=== PATIENT | male | born 1945 | race American Indian/Alaskan Native ===

== ENCOUNTER 2017-09-27 09:42 | Outpatient (CLI) | payer MEDICARE, OTHER ==
[2017-09-27] MEDS ORDERED: Gadobenate Dimeglumine 529 MG/1 ML (20ML VIAL) ONE (12:08)
--- NOTE | 2017-09-27 14:29 | MRI ---
MRI ABDOMEN WITH AND WITHOUT CONTRAST: HISTORY: Hepatic mass. COMPARISON: CT abdomen and pelvis 06/10/16 and 05/22/15 as well as outside facility 08/01/17 and 03/08/16. TECHNIQUE: Multiplanar, multisequence MRI performed prior to and after the intravenous administration of contras t. FINDINGS: Corresponding to the recently discussed mass in the right lobe of the liver hepatic segment 5, there is approximately a 2 x 2.1 cm mass with no arterial phase hyperenhancement, washout, enhancing capsul e, or threshold growth. This is similar in size dating back from 2014. There is, however, microscop ic fat within this. The hepatic contour is nodular suggesting cirrhosis. No suspicious arterial hyp erenhancing mass. There is a cyst in hepatic segment 8. Simple cyst present in superior pole right kidney. No hydronephrosis. No abnormal enhancing mass wi thin the pancreas, the spleen, or adrenal glands. No dilated loops involving the upper abdomen. IMPRESSION: 1. LIRADS 3: indeterminate for malignancy. The mass in the hepatic segment 5 is unchanged in size d ating back to 2014. This has no major features of malignancy and has ancillary features favoring bot h benignancy and malignancy. A followup MRI liver protocol in 6 months-1 year is recommended. 2. 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 There is also edema withi n the posterior elements and facets of L5 indicating degenerative disease. POS: [facility]
== END 2017-09-27 09:43 | disposition home or self-care (01) ==
LOC: MRI 09:42
PROVIDERS: ATTEND Internal Medicine Gastroenterology
DX: R16.0 Hepatomegaly, not elsewhere classified (principal); R60.0 Localized edema; M47.817 Spondylosis without myelopathy or radiculopathy, lumbosacral region
CPT/HCPCS: 74183; A9579

== ENCOUNTER 2018-03-21 13:35 | Outpatient (CLI) | payer MEDICARE, OTHER ==
--- NOTE | 2018-03-21 15:32 | MRI ---
MRI CERVICAL SPINE NONCONTRAST: HISTORY: Neck pain with right arm radiculopathy. FINDINGS: Vertebral body heights are maintained. There is desiccation of all of the intervertebral disks. C2-3: Osteophytosis. Mild to moderate stenosis left neural foramen. C3-4: Osteophytosis. Central canal is patent. Severe bilateral foraminal stenosis. C4-5: Bulky osteophytosis, right greater than left, with fusion of the right posterior elements. Ve ry severe right and moderate left foraminal stenosis. C5-6: Disk space narrowing. Minimal degenerative retrolisthesis. Posterior osteophyte/disk complex . Circumferential degenerative changes with severe stenosis of the central canal and each neural for amen. C6-7: Minimal degenerative spondylolisthesis. Posterior osteophyte/disk complex. Moderate stenosis of the central canal. Severe bilateral foraminal stenoses. C7-T1: Mild osteophytosis. Central canal and neural foramen are patent. IMPRESSION: Severe multilevel degenerative changes as detailed above. Central canal and foraminal stenoses are m ost severe at the C4-5 and the C5-6 levels. POS: [facility]
== END 2018-03-21 13:36 | disposition home or self-care (01) ==
LOC: SCSMRI 13:35
PROVIDERS: ATTEND Orthopaedic Surgery
DX: M47.22 Other spondylosis with radiculopathy, cervical region (principal); M48.02 Spinal stenosis, cervical region; M99.81 Other biomechanical lesions of cervical region
CPT/HCPCS: 72141

== ENCOUNTER 2018-09-20 14:10 | Outpatient (CLI) | payer MEDICARE, OTHER ==
--- NOTE | 2018-09-20 15:20 | MRI ---
MRI LUMBAR SPINE WITHOUT CONTRAST: Date: 09/20/18 COMPARISON: None. HISTORY: Right lower extremity radiculopathy, back pain. TECHNIQUE: Multiplanar, multisequence MR imaging of the lumbar spine obtained without contrast. FINDINGS: Sagittal STIR imaging demonstrates edematous change within the pedicles on the left at L4 and L5, whi ch could be on the basis of degenerative change or stress reaction. There is small volume fluid signa l intensity within the facet joints bilaterally at L4-5, right greater than left. This can be seen on the basis of instability. Flexion and extension imaging would thus be beneficial. Mild anterolisthesis of L4 on L5 noted measuring 4.0 mm. On the basis of five lumbar-type vertebral bodies, the conus medullaris terminates at the T12-L1 leve l. T12-L1: Disc space narrowing and disc desiccation noted with mild disc bulge. Anterior osteophyte fo rmation present. No significant central canal or neural foraminal stenosis. L1-2: Disc space narrowing, disc desiccation, and anterior osteophyte formation with mild disc bulge causing no central canal stenosis. Mild bilateral facet hypertrophy with no significant neural viry inal stenosis. L2-3: Disc space narrowing and disc desiccation noted with small central disc protrusion and associa kuldip annular tear. No significant associated central canal stenosis. Bilateral facet hypertrophy with mild bilateral neural foraminal stenosis, right greater than left. L3-4: Bilateral facet hypertrophy and hypertrophy of the ligamentum flavum. There is disc desiccatio n with disc space narrowing and mild disc bulge. Mild central canal stenosis. Mild/moderate bilateral neural foraminal stenosis. L4-5: Disc space narrowing, disc desiccation, and disc bulge. Prominent bilateral facet hypertrophy and hypertrophy of ligamentum flavum. Moderate central canal stenosis. Moderate/severe bilateral neur al foraminal stenosis, right greater than left. L5-S1: Disc space narrowing, disc desiccation, and vacuum disc formation. Prominent bilateral facet hypertrophy. Severe bilateral neural foraminal stenosis, left greater than right. Mild central canal stenosis. Mild anterolisthesis measures 5.0 mm at the L5-S1 level. T2 hyperintense partially imaged lesion emanates from upper pole of right kidney, likely on the basis of incompletely imaged cyst. IMPRESSION: Prominent degenerative change within the lower lumbar spine with associated central canal and neural foraminal stenosis at L4-5 and L5-S1 as detailed above. Flexion and extension imaging is suggested to evaluate for possible instability at L4-5. Edematous change noted within the pedicles on the left at L4 and L5 as detailed above. POS: [facility]
== END 2018-09-20 14:11 | disposition home or self-care (01) ==
LOC: BICMRI 14:10
PROVIDERS: ATTEND Orthopaedic Surgery
DX: M47.26 Other spondylosis with radiculopathy, lumbar region (principal); M79.604 Pain in right leg; M48.061 Spinal stenosis, lumbar region without neurogenic claudication; M48.07 Spinal stenosis, lumbosacral region
CPT/HCPCS: 72148

== ENCOUNTER 2018-12-10 13:19 | Outpatient (CLI) | payer MEDICARE, OTHER ==
--- NOTE | 2018-12-10 14:27 | RAD ---
CERVICAL SPINE FOUR VIEWS: HISTORY: Lumbar radiculopathy and cervical radiculopathy. COMPARISON: None. FINDINGS: The open-mouth odontoid view is normal. The mandible is intact. Dense calcifications are projecting over the carotid bulbs bilaterally. There is a 2 mm C3-C4 anterolisthesis, due to degenerative facet arthropathy. There is moderate narr owing of C3-C4 and C4-C5 and severe narrowing of the C5-C6 disk spaces with uncinate process hypertro phy at these levels, as well as bridging disk osteophyte complexes anteriorly. No significant listhe sis with flexion or extension. IMPRESSION: 1. There is 2 mm of C3-C4 anterolisthesis without significant translation with flexion or extension. 2. Degenerative changes as described. POS: [facility]
--- NOTE | 2018-12-10 14:29 | RAD ---
LUMBAR SPINE RADIOGRAPHS 4 VIEWS: DATE: 12/10/2018. PROVIDED CLINICAL HISTORY: Lumbar radiculopathy. FINDINGS: Five pil-zui-jeewfdi lumbar-type vertebral bodies are present. There is grade I anterolisthesis of L 4 on L5. There is slight retrolisthesis of L2 on L3. Multilevel end plate degenerative change. Dis k space narrowing at L1-2. Lower lumbar spine facet arthritis. No evidence for abnormal translation al motion with flexion and extension. IMPRESSION: Lumbar spine degenerative change as above. POS: [facility]
== END 2018-12-10 13:20 | disposition home or self-care (01) ==
LOC: TBSIIMAG 13:19
PROVIDERS: ATTEND Surgery
DX: M47.26 Other spondylosis with radiculopathy, lumbar region (principal); M43.12 Spondylolisthesis, cervical region; M47.812 Spondylosis without myelopathy or radiculopathy, cervical region
CPT/HCPCS: 72050; 72110

== ENCOUNTER 2019-01-31 09:41 | Day surgery (SDC) | payer MEDICARE, OTHER ==
[2019-01-30 15:16] VITALS: BMI 30.1
[2019-01-31 10:20] LABS: #Eosinphils 0.1 thou/uL (0.0-0.7); #Monocytes 0.5 thou/uL (0.11-0.59); #Neutrophils 2.6 thou/uL (1.40-6.50); %Basophils 0.6 % (0.0-1.0); %Eosinophils 1.9 % (0.0-10.0); %Lymphocytes 23.4 % (21.0-51.0); %Monocytes 11.1 % (0.0-10.0); Hemoglobin 13.3 g/dL (14.0-18.0); Mean Corpuscular HGB CONC 33.2 g/dL (32.0-36.0); Mean Corpuscular Volume 99.4 fL (78.0-98.0); Mean Platelet Volume 8.3 fL (7.4-10.4); Platelet Count 102 thou/uL (130-400); RBC Distribution Width 11.7 % (11.5-14.5); Red Blood Cell (RBC) Count 4.01 mill/uL (4.70-6.10); White Blood Cell (WBC) Count 4.2 thou/uL (4.8-10.8)
[2019-01-31] MEDS ORDERED: metroNIDAZOLE 500 MG/100 ML BAG ONE (10:23)
[2019-01-31] MEDS ORDERED: Fentanyl 250 MCG/5 ML VIAL ONE (10:24)
[2019-01-31 10:25] LABS: INR-International Normal Ratio 1.2; Prothrombin Time 15.3 SEC (12.0-14.7)
[2019-01-31] MEDS ORDERED: Bacitracin Zinc Ointment 30 gm TUBE ONE ×2 (10:25→10:27)
[2019-01-31] MEDS ORDERED: Thrombin 5000 UNITS/5 ML VIAL ONE (10:25)
[2019-01-31] MEDS ORDERED: Sodium Chloride 0.9% 10 ML ONE (10:30)
[2019-01-31 10:38] LABS: Anion Gap 13 mmol/L (10-20); BUN (Urea Nitrogen) 9 mg/dL (8.4-25.7); Calc. Creatinine Clearance 101 mL/min (70-130); Carbon Dioxide 27 mmol/L (23-31); Chloride 100 mmol/L (98-107); Estimated GFR-MDRD 89; Glucose 89 mg/dL (83-110); Potassium 4.5 mmol/L (3.5-5.1); Sodium 135 mmol/L (136-145)
[2019-01-31] MEDS ORDERED: Promethazine HCl 25 MG/ML VIAL IVPB PRN (14:32)
[2019-01-31] MEDS ORDERED: HYDROcodone/Acetaminophen 7.5/325 mg Tablet PO PRN (14:32)
[2019-01-31] MEDS ORDERED: Mag-Al 1200 mg/1200 mg/30 ML UDCUP PO PRN (14:32)
[2019-01-31] MEDS ORDERED: Acetaminophen 325 MG TAB PO PRN (14:32)
[2019-01-31] MEDS ORDERED: Bisacodyl 10 MG SUPP PR PRN (14:32)
[2019-01-31] MEDS ORDERED: traMADol HCl 50 MG TAB PO PRN (14:32)
[2019-01-31] MEDS ORDERED: Milk Of Magnesia 30 ML UDCUP PO PRN (14:32)
[2019-01-31] MEDS ORDERED: Ondansetron HCl/PF 4 MG/2 ML Vial IVP PRN (14:34)
[2019-01-31] MEDS ORDERED: Ketorolac Tromethamine 30 MG/ML VIAL IVP PRN (14:34)
[2019-01-31] MEDS ORDERED: Morphine Sulfate 2 MG/ML SYRINGE SLOW IVP PRN (14:34)
[2019-01-31] MEDS ORDERED: Promethazine HCl 25 MG/ML VIAL SLOW IVP PRN (14:34)
[2019-01-31] MEDS ORDERED: Meperidine HCl/PF 25 MG/ML VIAL SLOW IVP PRN (14:34)
[2019-01-31] MEDS ORDERED: HYDROmorphone 2 MG/ML VIAL SLOW IVP PRN (14:34)
[2019-01-31] MEDS ORDERED: Promethazine HCl 25 MG/ML VIAL IM PRN (14:34)
[2019-01-31] MEDS ORDERED: Fentanyl 100 MCG/2 ML VIAL ONE ×2 (14:37→15:56)
[2019-01-31] MEDS ORDERED: Fleet Enema 133 ML BOT PR PRN (16:00)
[2019-01-31] MEDS ORDERED: Lidocaine 1% PF 5 ML VIAL ONE (16:11)
[2019-01-31] MEDS ORDERED: PROPOFOL 200 MG/20 ML VIAL ONE (16:11)
[2019-01-31] MEDS ORDERED: Dexamethasone 20 MG/5 ML VIAL ONE (16:11)
[2019-01-31] MEDS ORDERED: ePHEDrine 50 MG/ML VIAL ONE (16:11)
[2019-01-31] MEDS ORDERED: PHENYLEPHRINE-NS 100 MCG/ML 10 ML SYRINGE ONE (16:11)
[2019-01-31] MEDS ORDERED: Rocuronium Bromide 10 MG/ML (10ML VIAL) ONE (16:11)
[2019-01-31] MEDS ORDERED: Glycopyrrolate 0.2 MG/ML 5 ML SYRINGE ONE ×2 (16:11)
[2019-01-31] MEDS ORDERED: Ondansetron PF 4 MG/2 ML Vial ONE (16:11)
[2019-01-31] MEDS: Sodium Chloride 0.9% 1,000 ML IV SCH (17:28)
[2019-01-31] MEDS: tiZANidine HCl 4 MG TAB PO PRN (17:43)
[2019-01-31] MEDS: Acetaminophen/Codeine 30-300mg Tablet PO PRN ×3 (17:43→23:35)
[2019-01-31] MEDS: CEFAZOLIN 2 GM in Premix Bag 1 BAG IVPB SCH (17:44)
[2019-01-31] MEDS: Morphine 4 MG/ML VIAL SLOW IVP PRN ×2 (20:02→21:49)
[2019-02-01] MEDS: CEFAZOLIN 2 GM in Premix Bag 1 BAG IVPB SCH (02:42)
[2019-02-01] MEDS: tiZANidine HCl 4 MG TAB PO PRN (04:06)
[2019-02-01] MEDS: Acetaminophen/Codeine 30-300mg Tablet PO PRN ×2 (04:06→14:44)
[2019-02-01] MEDS: Sodium Chloride 0.9% 1,000 ML IV SCH (04:08)
--- NOTE | 2019-02-01 07:21 | EKG ---
Test Reason : PREOP Blood Pressure : / mmHG Vent. Rate : 045 BPM Atrial Rate : 045 BPM P-R Int : 188 ms QRS Dur : 088 ms QT Int : 472 ms P-R-T Axes : 043 -01 004 degrees QTc Int : 408 ms Marked sinus bradycardia Abnormal ECG No previous ECGs available Confirmed by JANIS MARIE ([id number]) on 02/01/2019 7:21:05 AM Referred By: NELLI Confirmed By:JANIS MARIE
[2019-02-01] MEDS ORDERED: Alfuzosin 10 MG TABDR...ER PO SCH (08:00)
--- NOTE | 2019-02-01 08:17 | OP ---
DATE OF PROCEDURE: 01/31/2019 OPERATING ROOM: OR 12. BILINGUAL HR GENERALIST: Skyler Villa PA-C PREPROCEDURE DIAGNOSES: Multilevel lumbar stenosis with low back and leg pain and lumbar spondylolisthesis. POSTPROCEDURE DIAGNOSES: Multilevel lumbar stenosis with low back and leg pain and lumbar spondylolisthesis. PROCEDURES PERFORMED: 1. L2-L3, L3-L4, L4-L5, and L5-S1 laminectomies, partial facetectomies, and foraminotomies. 2. L5-S1 posterolateral in situ fusion with local bone autograft obtained with same incision allograft to treat spondylolisthesis. DESCRIPTION OF PROCEDURE: After informed consent was obtained, the patient was brought to the OR. Proper patient, pause, and identification were carried out. He was placed under excellent endotracheal anesthesia and positioned prone on the OR table. All appropriate points were padded. We identified the L2 through S1 dorsal spines. Linear felisha was made over this region. This area was sterilely cleansed, prepared, and draped. Proper patient, pause, and identification were carried out. The wound was then opened with a combination of sharp, monopolar, and blunt dissection. The L2, L3, L4, L5, and S1 dorsal spines and lamina were exposed along with the L5-S1 facet complexes, which were decorticated for preparation of posterolateral fusion in the latter part of the case. We then turned our attention to localization. We had confirmed our area of interest and we performed an L2, L3, L4, L5, and S1 laminectomies, partial facetectomies, and foraminotomies. They had excellent decompression of common dural tube in the L2, L3, L4, L5, and S1 nerve roots. Copious irrigation occurred throughout as I did maximizing hemostasis. I then turned our attention to posterolateral arthrodesis at L5-S1 with local bone autograft obtained with same incision in allograft bilaterally. The wound was then again copiously irrigated and hemostasis maximized. The wound was closed in anatomic layers following sprinkling of vancomycin powder. The patient emerged from anesthesia. Job ID: [id number]
[2019-02-01] MEDS ORDERED: Fluticasone Propionate Nasal Spray 16 gm Bottle NASAL SCH (09:00)
[2019-02-01] MEDS ORDERED: Oxybutynin ER 5 MG TAB PO SCH (09:00)
[2019-02-01] MEDS ORDERED: pyridOXINE 50 MG (B6) TAB PO SCH (09:00)
[2019-02-01] MEDS ORDERED: Propranolol HCl LA 60 MG CAP PO SCH (09:00)
[2019-02-01] MEDS ORDERED: LEVOTHYROXINE SODIUM 100 MCG PO SCH (09:00)
[2019-02-01] MEDS ORDERED: POTASSIUM GLUCONATE 90 MG PO SCH (09:00)
[2019-02-01] MEDS ORDERED: Amlodipine 5 MG TAB PO SCH (09:00)
[2019-02-01 12:40] VITALS: BP 111/51; TEMP 97.7
--- NOTE | 2019-02-01 15:15 | PRG ---
DATE OF SERVICE: 02/01/2019 Mr. Norman is postoperative day 1 from multilevel lumbar decompression and in situ fusion. He has had resolution in his leg pain. We went over both intra and postoperative issues. He may be dismissed. His wound is healing well. Job ID: [id number]
== END 2019-02-01 16:30 | disposition home or self-care (01) ==
LOC: SDC 09:41 → SJJU 14:32 → UNDOADMOB 14:32 → UNDODISOB 02-01 16:25 → SDC 02-01 16:30
PROVIDERS: ATTEND Surgery
PROC: 0SG1071 Fusion of 2 or more Lumbar Vertebral Joints with Autologous Tissue Substitute, Posterior Approach, Posterior Column, Open Approach (ICD-10-PCS; principal; 2019-01-31)
DX: M48.061 Spinal stenosis, lumbar region without neurogenic claudication (principal); M43.16 Spondylolisthesis, lumbar region; M54.16 Radiculopathy, lumbar region; Z79.51 Long term (current) use of inhaled steroids; Z79.899 Other long term (current) drug therapy; Z88.5 Allergy status to narcotic agent
CPT/HCPCS: 36415; 76000; 80048; 85025; 85610; 85730; 93005; 93010; J0690; J1100; J2001; J2270; J2405; J2704; J3010; J3370; J3490

== ENCOUNTER 2019-03-29 08:18 | Outpatient (CLI) | payer MEDICARE, OTHER ==
--- NOTE | 2019-03-29 09:03 | RAD ---
LUMBAR SPINE FOUR VIEWS: HISTORY: Lumbar radiculopathy. Post laminectomy syndrome. COMPARISON: 12/10/2018 FINDINGS: Recent extensive laminectomy changes are noted, including L3, L4, and L5. Generalized disk osteophyt osis. Mild grade 1 anterolisthesis of L4 and L5. Mild stable grade 1 anterolisthesis of L5 on S1. Mild retrolisthesis of L3 on L4 and of L2 on L3. No evidence for abnormal translation between flexio n and extension. IMPRESSION: 1. Extensive postoperative laminectomy changes. 2. Stable lumbar spine alignment. No abnormal translation between flexion and extension. POS: [facility]
== END 2019-03-29 08:19 | disposition home or self-care (01) ==
LOC: RAD 08:18
PROVIDERS: ATTEND Specialist
DX: M96.1 Postlaminectomy syndrome, not elsewhere classified (principal)
CPT/HCPCS: 72120

== ENCOUNTER 2019-04-17 14:09 | Outpatient (CLI) | payer MEDICARE, OTHER ==
[2019-04-17 14:54] LABS: Estimated GFR-MDRD - POC Greater than 90
--- NOTE | 2019-04-17 16:06 | MRI ---
MRI Lumbar Spine with and withoutcontrast: HISTORY: Pain; spondylolisthesis of lumbar spine COMPARISON: 09/20/2018 MRI FINDINGS: Conus medullaris is normal in morphology and terminates at the L1 level. There is a large peripherally enhancing posterior paraspinous fluid collection with marked irregular thickened and enhancing dura along the posterior aspect of the thecal sac which spans the inferior L2 to the inferior S1 level. The fluid collection measures craniocaudally 9.2 cm, and AP 1.9 cm with prominent posterior abnormal paraspinous soft tissue enhancement which abuts the fluid collection, and measures approximately 4.8 cm in AP dimension. Bilateral multilevel degenerative facet hypertrophy is present L1-2:Mild effacement of ventral thecal sac by disc osteophyte formation. There is hvuk-xr-syyssitx le ft and mild right neural foraminal narrowing. L2-3:Central disc protrusion with ventral thecal sac effacement and mild central canal stenosis. Ther e is mild retrolisthesis. Moderate left and mild to moderate right neural foraminal narrowing L3-4:Mild retrolisthesis with broad-based disc osteophyte producing mild central canal stenosis and m oderate bilateral neural foraminal narrowing L4-5:Mild central canal stenosis as result of broad-based disc osteophyte complex. Moderate bilateral neural foraminal stenosis L5-S1:Grade 1 spondylolisthesis with pseudodisc bulge. Moderate bilateral neural foraminal stenosis p resent. IMPRESSION: Large irregularly shaped, peripherally enhancing fluid collection spanning mid lumbar through the upp er sacral spinal level abutting the posterior thecal sac. Given the associated irregularly thickened and enhancing dura and prominent posterior paraspinous soft tissue enhancement, infectious processes the diagnosis of exclusion. Correlate clinically in this regard. Multilevel degenerative change throughout lumbar spine, as delineated above Transcribed Date/Time: 04/17/2019 4:22 PM
== END 2019-04-17 14:10 | disposition home or self-care (01) ==
LOC: TBSIIMAG 14:09
PROVIDERS: ATTEND Surgery
DX: M43.16 Spondylolisthesis, lumbar region (principal); M47.816 Spondylosis without myelopathy or radiculopathy, lumbar region
CPT/HCPCS: 72158; 82565

== ENCOUNTER 2019-10-29 05:48 | Observation (INO) | payer MEDICARE, OTHER ==
[2019-10-29] MEDS ORDERED: Bacitracin Zinc Ointment 30 gm TUBE ONE (06:33)
[2019-10-29] MEDS ORDERED: Bupivacaine PF 0.5% 30 ML VIAL ONE ×2 (06:33→07:55)
[2019-10-29] MEDS ORDERED: Betamet Acet/Betamet Na Ph 30 MG/5 ML VIAL ONE (06:33)
[2019-10-29] MEDS ORDERED: Fentanyl 100 MCG/2 ML VIAL ONE ×3 (06:44→11:30)
[2019-10-29] MEDS ORDERED: Midazolam HCl 2 mg/2 ml Vial ONE (06:55)
[2019-10-29 07:05] LABS: #Eosinphils 0.1 thou/uL (0.0-0.7); #Lymphocytes 1.1 thou/uL (1.20-3.40); #Monocytes 0.5 thou/uL (0.11-0.59); #Neutrophils 3.5 thou/uL (1.40-6.50); %Basophils 0.2 % (0.0-1.0); %Eosinophils 1.3 % (0.0-10.0); %Lymphocytes 21.5 % (21.0-51.0); %Monocytes 9.8 % (0.0-10.0); %Neutrophils 67.2 % (42.0-75.0); Hemoglobin 13.4 g/dL (14.0-18.0); Mean Corpuscular HGB CONC 34.5 g/dL (32.0-36.0); Mean Corpuscular Hemoglobin 34.6 pg (27.0-31.0); Mean Platelet Volume 8.1 fL (7.4-10.4); Platelet Count 97 thou/uL (130-400); RBC Distribution Width 11.8 % (11.5-14.5); Red Blood Cell (RBC) Count 3.86 mill/uL (4.70-6.10); White Blood Cell (WBC) Count 5.2 thou/uL (4.8-10.8)
[2019-10-29 07:11] LABS: Anion Gap 12 mmol/L (10-20); BUN (Urea Nitrogen) 7 mg/dL (8.4-25.7); Calc. Creatinine Clearance 110 mL/min (70-130); Calcium 8.6 mg/dL (7.8-10.44); Carbon Dioxide 24 mmol/L (23-31); Chloride 101 mmol/L (98-107); Estimated GFR-MDRD Greater than 90; Glucose 86 mg/dL (83-110); Potassium 4.4 mmol/L (3.5-5.1); Sodium 133 mmol/L (136-145)
[2019-10-29] MEDS ORDERED: Sodium Chloride 0.9% 10 ML ONE (08:42)
--- NOTE | 2019-10-29 10:27 | RAD ---
EXAM: XR Elbow Lt 2 View DATE: 10/29/2019 12:00 AM INDICATION: Removal of left elbow osteophyte COMPARISON: None. FINDING: Submitted intraoperative C-arm images demonstrate normal glenohumeral and radiocapitellar a lignment. No acute fracture is grossly evident. Total fluoroscopic time was 14.9 seconds. No large residual osteophyte is grossly evident. IMPRESSION:Intraoperative C-arm images of the left elbow. No acute osseous abnormality.
[2019-10-29] MEDS ORDERED: Ondansetron PF 4 MG/2 ML Vial ONE (10:58)
[2019-10-29] MEDS ORDERED: PHENYLEPHRINE-NS 100 MCG/ML 10 ML SYRINGE ONE (10:58)
[2019-10-29] MEDS ORDERED: PROPOFOL 200 MG/20 ML VIAL ONE (10:58)
[2019-10-29] MEDS ORDERED: Dexamethasone 20 MG/5 ML VIAL ONE (10:58)
[2019-10-29] MEDS ORDERED: Ketorolac Tromethamine 30 MG/ML VIAL ONE (10:58)
[2019-10-29] MEDS ORDERED: Lidocaine 1% PF 5 ML VIAL ONE (10:58)
[2019-10-29] MEDS ORDERED: Bisacodyl 10 MG SUPP PR PRN (11:31)
[2019-10-29] MEDS ORDERED: Ondansetron PF 4 MG/2 ML Vial IV PRN (11:31)
[2019-10-29] MEDS ORDERED: HYDROcodone/Acetaminophen 10/325 mg Tablet PO PRN (11:31)
[2019-10-29] MEDS ORDERED: Milk Of Magnesia 30 ML UDCUP PO PRN (11:31)
[2019-10-29] MEDS ORDERED: Morphine 4 MG/ML VIAL SLOW IVP PRN (11:31)
[2019-10-29] MEDS ORDERED: Fentanyl 100 MCG/2 ML VIAL SLOW IVP PRN (11:31)
[2019-10-29] MEDS ORDERED: Meperidine HCl/PF 25 MG/ML VIAL IM PRN (11:35)
[2019-10-29] MEDS ORDERED: Promethazine HCl 25 MG/ML VIAL ONE (11:38)
[2019-10-29] MEDS ORDERED: Communication Order-Pharmacy FS PRN (11:45)
[2019-10-29] MEDS ORDERED: Vancomycin 1.5 GRAM/300 ML BAG 1.5 GM in Premix Bag 1 BAG IVPB SCH (12:45)
[2019-10-29] MEDS: Sodium Chloride 0.9% 1,000 ML IV SCH ×2 (13:29→22:15)
[2019-10-29 14:54] VITALS: BMI 29.5
[2019-10-29] MEDS ORDERED: Acetaminophen/Codeine 30-300mg Tablet PO PRN (16:03)
[2019-10-29] MEDS ORDERED: TETANUS AND DIPHTHERIA TOX/PF 0.5 ML DISP.SYRIN IM SCH (17:00)
[2019-10-29] MEDS: Aspirin 81 mg Enteric Coated Tablet PO SCH (19:37)
[2019-10-29] MEDS ORDERED: Gabapentin 300 MG CAP PO SCH (21:00)
[2019-10-29] MEDS ORDERED: Propranolol HCl LA 60 MG CAP PO SCH (21:30)
[2019-10-30] MEDS: Sodium Chloride 0.9% 1,000 ML IV SCH (07:39)
[2019-10-30] MEDS ORDERED: Enoxaparin Sodium 40 MG/0.4 ML SYRINGE SC SCH (09:00)
[2019-10-30] MEDS: Aspirin 81 mg Enteric Coated Tablet PO SCH (09:24)
[2019-10-30 11:08] VITALS: BP 127/80; TEMP 98.5
--- NOTE | 2019-10-31 14:10 | DIS ---
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 POSTOPERATIVE DIAGNOSES: Woodruff stage II abnormality with changes and weakness adductor digit minimi. 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 On the date of admission, he also underwent olecranon bursectomy for wide evidence of bursitis with thickness and fluid as well as osteophyte incision in the posterior elbow. This included both the olecranon and the lateral aspect/radial aspect of the fossa. The patient tolerated the procedure well. Had a drain removed approximately 12 hours after surgery. His numbness and tingling were slightly improved, but still present in the small finger, but different character. He was prepared for discharge and this occurred on the day after surgery or approximately 30 hours after surgery. His diet will be regular and his plan will be to use arm sling, elevated it and ice, take the Coalgate (7.5 mg 1 to 2 q.6-8 hours p.r.n.), Bactrim DS for antibiotics, and will follow up with us in 1 week for dressing change, evaluation of the numbness and then that will determine his return to guitar playing. Job ID: [id number]
--- NOTE | 2019-10-31 14:10 | OP ---
DATE OF PROCEDURE: 10/29/2019 PREOPERATIVE DIAGNOSES: 1. 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 2. Onion bulb type narrowing, marked, throughout the level beginning 1 cm proximal to the primary cubital tunnel until 5 mm distal to it with compression also seen of the interosseous membrane; olecranon bursitis seen; also a large olecranon osteophyte. OPERATIVE FINDINGS: 1. Ulnar nerve compression. 2. Onion bulb type compression, severe, correlated with his advanced Woodruff changes. 3. 2.0 x 1.5 cm medial to ulna osteophyte of the olecranon fossa. OPERATIVE PROCEDURES: 1. Olecranon bursectomy, radical. 2. Submuscular transposition of the ulnar nerve after cubital tunnel release and decompression. 3. Distal humeral and olecranon fossa osteophyte excision. Specimen will be sent with bursa and osteophyte along with what appear to be gouty crystals within the bursa. TOURNIQUET TIME: 95 minutes. INDICATIONS: The patient had been counseled previously with his hopes to returning to our plan after failing all conservative treatment to include therapy, extension bracing, Lyrica and Neurontin, anti inflammatories and hand therapy, this operation was indicated after almost a year of conservative treatment. He has stage III Woodruff changes with flat out weakness of the abductor digiti minimi to the level of 3/5 on that side and Tinel's at 3 sites along the 5 potential compressive portions of the nerve course as well as marked elbow flexion abnormalities. This was his prior complaint that with flexion and playing guitar he could not perform it because of overwhelming numbness. DESCRIPTION OF PROCEDURE: After successful general endotracheal anesthesia, the limb was prepped and draped. He had the time-out performed appropriately and then the limb was prepped sterilely, sterile tourniquet was applied high in the axilla portion of the arm, and his shoulder was draped free. We then visualized his previous area of intervention, made an incision slightly medial to the olecranon, but staying off the olecranon, carried through skin and subcutaneous tissue 10 cm distal and 15 cm proximal to the center of the elbow. He had asked us to not violate his waist at the elbow. The patient then had the limb placed in, shoulder abduction and internal rotation, held with large sheaths without traction to allow to visualize the approach. We carried through skin, subcutaneous tissue and since it was medial, the cutaneous nerve was contained in the skin flap and protected to include the MABC and MBC. We immediately saw a small what we thought to be tophi like deposit with very thick bursa, so we knew a radical bursectomy would be indicated. We found the ulnar nerve high in the incision proximally, well contained within the edge of the fascia of the trapezium. We then dissected the fascia from the ulnar nerve to free it beginning as high an incision as possible all way down to the level of 2 cm proximal to the cubital tunnel. Here, the nerve became flattened by the edge of the insertion of the medial intermuscular septum and this flatness continued into the primary ligament which was released from my advantage point very carefully, almost 1 mm or 2 because it was so flat, we did not want to cause any permanent damage. The nerve now was completely free via neuroplasty. We then dissected it free enough that without any acute curvature, it could be transposed 15 mm at the level of the medial epicondyle and 12 to 15 mm in all other sites without undue pressure or kinking and we brought a vein with this. We then let the nerve come back back into its bed, protected, found the intermuscular septum and took this away, it was a 9 mm wide strip, as far proximal as 15 cm from the tip of the medial epicondyle. We then made a zigzag cut for a Z-lengthening and extended the flexor pronator group origin, did not violate the joint capsule, collateral ligament. We then gently placed the nerve in its bed and again even with the elbow extended or fully flexed there was no undue compression of the nerve. We gently closed this lengthened flexor pronator site with interrupted #2 Ethibond OS-4 needle. Now, we were able to see the complete olecranon bursa with ulnar nerve safely out of the way to perform a radical bursectomy beginning approximately 3 mm radial to the previous bed of the ulnar nerve and carried it all the way to the radial corner exposing now the triceps mechanism. We then lifted up the triceps, on the C-arm, visualized the large part of the osteophyte, removed it with a rongeur at multiple sites to include the olecranon tip and the olecranon fossa and used a C-arm to safely remove almost 75% total osteophyte seen except for those of the intra-articular primary elbow. We did not invade this joint space. The patient had about 25 degrees of improved extension passively. The patient then had a small osteotome, long rongeur used to finish the osteotomy to include some of the humerus as well proximally, but did not violate any joint articular surface. There was no acute locking or compression or crepitance at the end of the procedure. We irrigated the area with 500 mL normal saline. Performed radiographs which showed most of the osteophytes were gone and there had been a rearrangement of the olecranon. The patient had no evidence of anesthetic or operative complication and at this point we deflated the tourniquet, obtained hemostasis. Tourniquet time was 95 minutes. Then, we placed a drain deep, closed the subcutaneous tissue with a running 3-0 Monocryl in a buyixo-by-pofne pattern and the patient had no evidence of anesthetic operative complication while we finished this closure. For the skin, we placed a 3-0 nylon interrupted mattress pattern and this gave excellent tension and maintained the wound with 120 degrees passive flexion and 0 degrees extension. The digits were pink and he had normal refill. He had a drain placed, which was pulled the next day on the floor since he could not tolerate going home. He also and these were addressed. Job ID: [id number]
--- NOTE | 2019-11-04 18:35 | EKG ---
Test Reason : PREOP Blood Pressure : / mmHG Vent. Rate : 052 BPM Atrial Rate : 052 BPM P-R Int : 186 ms QRS Dur : 086 ms QT Int : 436 ms P-R-T Axes : 034 -04 -04 degrees QTc Int : 405 ms Sinus bradycardia Minimal voltage criteria for LVH, may be normal variant Borderline ECG When compared with ECG of 31-JAN-2019 10:13, No significant change was found Confirmed by DINESH BENITEZ, . SJuliann ([id number]) on 11/04/2019 6:35:44 PM Referred By: TYLER Confirmed By:DR. Parth MONTIEL MD
== END 2019-10-30 11:23 | disposition home or self-care (01) ==
LOC: SDC 05:48 → SURG A 12:47
PROVIDERS: ADMIT Orthopaedic Surgery Hand Surgery; ATTEND Orthopaedic Surgery Hand Surgery
PROC: 0MB40ZZ Excision of Left Elbow Bursa and Ligament, Open Approach (ICD-10-PCS; principal; 2019-10-29)
PROC: 01N40ZZ Release Ulnar Nerve, Open Approach (ICD-10-PCS; 2019-10-29)
DX: G56.22 Lesion of ulnar nerve, left upper limb (principal); M70.32 Other bursitis of elbow, left elbow; M25.722 Osteophyte, left elbow; M1A.9XX1 Chronic gout, unspecified, with tophus (tophi); I10 Essential (primary) hypertension; Z87.891 Personal history of nicotine dependence; Z79.2 Long term (current) use of antibiotics; Z79.899 Other long term (current) drug therapy; Z88.5 Allergy status to narcotic agent; Z98.1 Arthrodesis status; Z98.890 Other specified postprocedural states
CPT/HCPCS: 24105; 64718; 73070; 76000; 80048; 85025; 88304; 88305; 88311; 93005; 96372; 96374; 96375; 97139 ×2; G0378 ×2; 93010; J0690; J0702; J1100; J1650; J1885; J2001; J2250; J2405; J2550; J2704; J3010; J3490; S0020

== ENCOUNTER 2020-04-01 07:06 | Outpatient (CLI) | payer MEDICARE, OTHER ==
[2020-04-01 15:58] LABS: #Eosinphils 0.1 thou/uL (0.0-0.7); #Lymphocytes 1.3 thou/uL (1.20-3.40); #Monocytes 0.7 thou/uL (0.11-0.59); #Neutrophils 3.6 thou/uL (1.40-6.50); %Basophils 0.6 % (0.0-1.0); %Eosinophils 1.7 % (0.0-10.0); %Lymphocytes 22.1 % (21.0-51.0); %Monocytes 12.2 % (0.0-10.0); %Neutrophils 63.5 % (42.0-75.0); Hemoglobin 13.3 g/dL (14.0-18.0); Mean Corpuscular HGB CONC 34.3 g/dL (32.0-36.0); Mean Corpuscular Hemoglobin 32.7 pg (27.0-31.0); Mean Corpuscular Volume 95.3 fL (78.0-98.0); Mean Platelet Volume 9.2 fL (7.4-10.4); Platelet Count 99 thou/uL (130-400); RBC Distribution Width 12.6 % (11.5-14.5); Red Blood Cell (RBC) Count 4.07 mill/uL (4.70-6.10); White Blood Cell (WBC) Count 5.7 thou/uL (4.8-10.8)
[2020-04-02 12:07] LABS: SARS-CoV-2 MS2 Positive; SARS-CoV-2 N Gene Negative; SARS-CoV-2 S Gene Negative; SARS-CoV-2 orf1ab Negative
== END 2020-04-01 07:07 | disposition home or self-care (01) ==
LOC: LABBT 07:06
PROVIDERS: ATTEND Orthopaedic Surgery Hand Surgery
DX: Z01.812 Encounter for preprocedural laboratory examination (principal); Z11.59 Encounter for screening for other viral diseases; G56.22 Lesion of ulnar nerve, left upper limb
CPT/HCPCS: 85025; U0003; 87635

== ENCOUNTER 2020-04-03 08:32 | Observation (INO) | payer MEDICARE, OTHER ==
[2020-03-31 10:35] VITALS: BMI 30.4
[2020-04-03] MEDS ORDERED: Ondansetron PF 4 MG/2 ML Vial ONE ×2 (10:45→15:47)
[2020-04-03] MEDS ORDERED: Dexamethasone 20 MG/5 ML VIAL ONE (10:45)
[2020-04-03] MEDS ORDERED: PROPOFOL 200 MG/20 ML VIAL ONE (10:45)
[2020-04-03] MEDS ORDERED: Lidocaine 1% PF 5 ML VIAL ONE (10:45)
[2020-04-03] MEDS ORDERED: Ketorolac Tromethamine 30 MG/ML VIAL ONE (10:45)
[2020-04-03] MEDS ORDERED: Fentanyl 100 MCG/2 ML VIAL ONE ×3 (11:27→15:53)
[2020-04-03] MEDS ORDERED: Betamet Acet/Betamet Na Ph 30 MG/5 ML VIAL ONE (11:33)
[2020-04-03] MEDS ORDERED: Heparin 10,000 UNITS/1 ML VIAL ONE (11:33)
[2020-04-03] MEDS ORDERED: Bupivacaine PF 0.5% 30 ML VIAL ONE ×2 (11:33→15:06)
[2020-04-03] MEDS ORDERED: Lidocaine 2% PF 5 ML VIAL ONE (11:34)
[2020-04-03] MEDS ORDERED: Sodium Chloride 0.9% 10 ML ONE (11:34)
[2020-04-03] MEDS ORDERED: Bacitracin Zinc Ointment 30 gm TUBE ONE (11:34)
[2020-04-03] MEDS ORDERED: Hetastarch 6% 500 ML 0 ML ONE (11:34)
[2020-04-03] MEDS ORDERED: Milk Of Magnesia 30 ML UDCUP PO PRN (15:59)
[2020-04-03] MEDS ORDERED: Bisacodyl 10 MG SUPP PR PRN (15:59)
[2020-04-03] MEDS ORDERED: Fentanyl 100 MCG/2 ML VIAL SLOW IVP PRN (15:59)
[2020-04-03] MEDS ORDERED: Ondansetron PF 4 MG/2 ML Vial IV PRN (15:59)
[2020-04-03] MEDS ORDERED: traMADol HCl 50 MG TAB PO PRN (15:59)
[2020-04-03] MEDS ORDERED: Promethazine HCl 25 MG/ML VIAL IM PRN (15:59)
[2020-04-03] MEDS ORDERED: Sodium Chloride 0.9% 100 ML IV SCH (16:00)
[2020-04-03] MEDS ORDERED: Ketorolac Tromethamine 30 MG/ML VIAL IVP PRN (16:02)
[2020-04-03] MEDS ORDERED: Meperidine HCl/PF 25 MG/ML VIAL IM PRN (16:02)
[2020-04-03] MEDS ORDERED: Promethazine HCl 25 MG/ML VIAL ONE (16:02)
[2020-04-03] MEDS ORDERED: Diazepam 5 MG TAB PO PRN (16:08)
[2020-04-03 17:37] LABS: Calc. Creatinine Clearance 108 mL/min (70-130); Estimated GFR-MDRD Greater than 90
[2020-04-03] MEDS: Sodium Chloride 0.9% 1,000 ML IV SCH (18:04)
[2020-04-03] MEDS: Vancomycin HCl 1.25 GM in Sodium Chloride 0.9% 250 ML 250 ML IVPB SCH (18:33)
[2020-04-03] MEDS ORDERED: Propranolol HCl LA 60 MG CAP PO SCH (20:30)
[2020-04-03] MEDS ORDERED: Amlodipine 5 MG TAB PO SCH (20:30)
[2020-04-03] MEDS ORDERED: Lisinopril 20 MG TAB PO SCH (20:30)
[2020-04-03] MEDS: Aspirin 81 mg Enteric Coated Tablet PO SCH (20:30)
[2020-04-03] MEDS: Pregabalin 75 MG CAP PO SCH (20:30)
[2020-04-03] MEDS: pyridOXINE 50 MG (B6) TAB PO SCH (20:30)
[2020-04-03] MEDS: Acetaminophen/Codeine 30-300mg Tablet PO PRN (23:50)
[2020-04-04] MEDS: Sodium Chloride 0.9% 1,000 ML IV SCH (05:27)
[2020-04-04] MEDS: Vancomycin HCl 1.25 GM in Sodium Chloride 0.9% 250 ML 250 ML IVPB SCH (05:31)
[2020-04-04] MEDS ORDERED: Levothyroxine Sodium 100 MCG TAB PO SCH (06:00)
[2020-04-04] MEDS: Aspirin 81 mg Enteric Coated Tablet PO SCH (08:14)
[2020-04-04] MEDS: pyridOXINE 50 MG (B6) TAB PO SCH (08:15)
[2020-04-04] MEDS: Pregabalin 75 MG CAP PO SCH (08:15)
[2020-04-04] MEDS ORDERED: Amlodipine 5 MG TAB PO SCH (09:00)
[2020-04-04] MEDS ORDERED: Lisinopril 20 MG TAB PO SCH (09:00)
[2020-04-04] MEDS ORDERED: Oxybutynin ER 5 MG TAB PO SCH (09:00)
[2020-04-04] MEDS ORDERED: TETANUS AND DIPHTHERIA TOX/PF 0.5 ML DISP.SYRIN IM SCH (09:00)
[2020-04-04] MEDS ORDERED: Propranolol HCl LA 60 MG CAP PO SCH (09:00)
[2020-04-04] MEDS: Acetaminophen/Codeine 30-300mg Tablet PO PRN (12:17)
[2020-04-04 12:53] VITALS: BP 117/72; TEMP 98
--- NOTE | 2020-04-06 11:46 | OP ---
DATE OF PROCEDURE: 04/03/2020 PREOPERATIVE DIAGNOSES: Ulnar nerve compression probably underneath the transposition site submuscular findings, compression of ulnar nerve throughout the entire distal 2/3rd of the submuscular transposition with hourglass formation seen and bulbous dilation underneath the transposition site. The bulbous compression was from the entrance to the exit within the submuscular transposition. PROCEDURES PERFORMED: 1. Ulnar nerve neuroplasty. 2. Conduit application 4 cm long by 1 cm diameter over the nerve at its most injured portion. TOURNIQUET TIME: 123 minutes. ESTIMATED BLOOD LOSS: 75 mL. DESCRIPTION OF PROCEDURE: After successful general endotracheal anesthesia, the limb was prepped and draped. We then saw his previous incision and outlined it for FCR approach. The patient had the limb exsanguinated with sterile tourniquet and the tourniquet inflated to 250 mmHg pressure. We entered the incision and carried through complete subcutaneous tissue until, I extended it 5 cm proximal to the initial incision. We found the ulnar nerve uninvolved in any scarring. We then slowly and carefully dissected the ulnar nerve from its area of transposition anteriorly until we reached the site of the submuscular transposition. Here, we then began to release some of transposition through the sutures and as we elevated the flexor pronator group, we saw the beginning within 5 mm of the transposition, there was a bulbous dilation of the median nerve secondary to compression. We released the entire transposition site. We then released any scar that it form distal transposition over the nerve, which was approximately 2 mm thick and almost 6 cm long. Now, the nerve was completely free. We freed it without violation of his branch to the FCU and FCR, and then allowed it to find its own way, which was just palmar to the medial epicondyle. Here, we had almost a 7 cm area of nerve that had previously been dilated and bulbously compressed that was freed, in to order protect it with some type of subcutaneous protection, we placed a nerve conduit over the bulbous area. Then, we released the tourniquet, obtained hemostasis, as the patient is on blood thinners to include use of moist sponge packing of the wound and then removing it to obtain hemostasis. The patient then had submuscular transposition site closed with #2 Ethibond Os-4 needle and interrupted [id number] sutures x5. There was no instability seen. The subcutaneous closure was accomplished with a running 4-0 Monocryl and the skin reapproximated by 4-0 nylon interrupted mattress pattern. The patient left the operating room with a bulky dressing, no evidence of anesthetic or operative complication with excellent circulation pink digit. He was placed in a long-arm splint in -30 degrees of extension. Job ID: [id number]
== END 2020-04-04 13:56 | disposition home or self-care (01) ==
LOC: SDC 08:32 → SURG A 15:57
PROVIDERS: ADMIT Orthopaedic Surgery Hand Surgery; ATTEND Orthopaedic Surgery Hand Surgery
PROC: 3E0T3GC Introduction of Other Therapeutic Substance into Peripheral Nerves and Plexi, Percutaneous Approach (ICD-10-PCS; principal; 2020-04-03)
DX: G56.22 Lesion of ulnar nerve, left upper limb (principal); M25.722 Osteophyte, left elbow; I10 Essential (primary) hypertension; Z87.891 Personal history of nicotine dependence; Z79.2 Long term (current) use of antibiotics; Z79.899 Other long term (current) drug therapy; Z88.5 Allergy status to narcotic agent
CPT/HCPCS: 64718; 64999; 82565; 96374; 96375; 96376; C9352; G0378 ×2; 36415; J0690; J0702; J1100; J1644; J1885; J2001; J2405; J2550; J2704; J3010; J3370; J3490; J7050; S0020

== ENCOUNTER 2020-04-16 15:43 | Day surgery (SDC) | payer MEDICARE, OTHER ==
[~2020-04-16 15:43] MED LIST: EPHEDRINE 25 MG/5 ML SYRINGE ONE; Lidocaine 1% PF 5 ML VIAL ONE; Ondansetron PF 4 MG/2 ML Vial ONE; PROPOFOL 200 MG/20 ML VIAL ONE
[2020-04-16] MEDS ORDERED: Fentanyl 100 MCG/2 ML VIAL ONE ×2 (17:44→20:30)
[2020-04-16] MEDS ORDERED: Lidocaine 2% Jelly 5 ML TUBE ONE (17:45)
[2020-04-16] MEDS ORDERED: Bacitracin Zinc Ointment 30 gm TUBE ONE (17:57)
[2020-04-16] MEDS ORDERED: Bupivacaine PF 0.5% 30 ML VIAL ONE (17:57)
[2020-04-16] MEDS ORDERED: Sodium Chloride 0.9% 30 ML ONE (18:02)
[2020-04-16] MEDS ORDERED: Thrombin 5000 UNITS/5 ML VIAL ONE (19:18)
[2020-04-16] MEDS ORDERED: Promethazine HCl 25 MG/ML VIAL SLOW IVP PRN (20:22)
[2020-04-16] MEDS ORDERED: Ondansetron HCl/PF 4 MG/2 ML Vial IVP PRN (20:22)
[2020-04-16] MEDS ORDERED: Promethazine HCl 25 MG/ML VIAL IM PRN (20:22)
--- NOTE | 2020-04-17 02:18 | OP ---
DATE OF PROCEDURE: 04/16/2020 PREOPERATIVE DIAGNOSIS: Left arm hematoma. FINDINGS: Left arm hematoma with approximately 60 mL of clotted blood with negative gross infection and negative Gram stain x2. SPECIMENS SENT: Culture. PROCEDURE PERFORMED: Evacuation of hematoma, left arm. TOURNIQUET TIME: 10 minutes. ESTIMATED BLOOD LOSS: 60 mL with clot. INDICATION: The patient is almost 2-1/2 weeks since revision cubital tunnel procedure, which this time involved release of a submuscular transposition because of constriction, markedly improved ulnar nerve symptom include almost no numbness and return to guitar play, but he complained of tightness and ache. Evaluation of his arm revealed a hematoma. We attempt to aspirate it x2 and we could not remove it because it was so thick. It was already starting to leak, hematoma clot around one of sutures and worried about infection, made an urgent procedure today, thus it was performed without COVID testing in the COVID room. All people were dressed with appropriate PPD for this outcome. DESCRIPTION OF PROCEDURE: After prepping and draping to include a sterile tourniquet, the limb was exsanguinated and tourniquet inflated to 250 mm Hg pressure. The hematoma was centered on the proximal 1/3rd of the wound, so we opened the proximal 40% to 50% of the wound, removing the previous sutures. Immediately hematoma that was almost so dark, it was purple was removed. It was approximately 60-70 mL of clot and a small amount of liquid blood. We then irrigated this area with a Pulsavac using 3 L normal saline under Pulsavac pressure. We look for obvious bleeding. We did not see any. We then placed cold normal saline with lap sponges in the wound, packed it for 10 minutes while we waited the Gram stain results to see if it had bacteria early and that it might be made to be left open with a VAC dressing. 10 minutes had passed and no Gram stain result was available. We now inspected the wound, we saw only subcutaneous bleeding where I had opened the incision deep, the nerve was visualized, it was intact. There was no hematoma proximal, anterior or posterior or distal aspect of the wound looking in all corners. We even put normal saline in the wound to look and see if there was any slow bleeding from any one site. Then, we placed the Gel-Foam with thrombin in the wound and waited an additional 12 minutes before the Gram stain results, which showed that there was no bacteria in both the culture sample and in the Gram stain swab. We inspected the wound again before closing. We gave the patient 30 mL of 0.5% Marcaine block subcutaneous, then closed the wound using simple 3-0 nylon suture, vertical mattress. There was no return of the fluctuant areas seen before and we then placed a bacitracin, Adaptic, 4x4, Kerlix, and then a 6-inch Michael wrap proximal and distal to the elbow a 4-inch Michael wrap. This included a wrap around the metacarpals and the first web space. He then left the operating room without evidence of anesthetic or operative complication. Job ID: [id number]
== END 2020-04-16 21:24 | disposition home or self-care (01) ==
LOC: SDC 15:43
PROVIDERS: ATTEND Orthopaedic Surgery Hand Surgery
PROC: 0J9H0ZZ Drainage of Left Lower Arm Subcutaneous Tissue and Fascia, Open Approach (ICD-10-PCS; principal; 2020-04-16)
DX: S40.022A Contusion of left upper arm, initial encounter (principal); Z88.5 Allergy status to narcotic agent; Z98.890 Other specified postprocedural states; X58.XXXA Exposure to other specified factors, initial encounter
CPT/HCPCS: 87070; 87077; 87186; 87205; J2405; J2704; J3010; J3490; S0020

== ENCOUNTER 2021-05-26 10:46 | Outpatient (CLI) | payer MEDICARE, OTHER | END 2021-05-26 10:47 | disposition home or self-care (01) | LOC: LABBT 10:46 | PROVIDERS: ATTEND Orthopaedic Surgery | DX: Z01.818 Encounter for other preprocedural examination (principal); M17.11 Unilateral primary osteoarthritis, right knee; Z20.822 Contact with and (suspected) exposure to COVID-19 | CPT/HCPCS: 80048; 81001; 85025; 85610; 86850; 86900; 86901; 87081; 93005; U0003; U0005; 93010 ==

== ENCOUNTER 2021-05-31 07:06 | Inpatient (IN) | payer MEDICARE, OTHER ==
[2021-05-26 12:27] LABS: #Eosinphils 0.1 10x3/uL (0.0-0.5); #Monocytes 0.7 10x3/uL (0.0-1.1); #Neutrophils 3.5 10x3/uL (1.5-8.4); %Basophils 0.4 % (0.0-2.0); %Eosinophils 2.1 % (0.0-6.0); %Lymphocytes 16.6 % (18.0-47.0); %Monocytes 13.5 % (0.0-10.0); %Neutrophils 66.8 % (40.0-75.0); Hemoglobin 11.8 g/dL (13.5-17.5); Mean Corpuscular HGB CONC 34.1 g/dL (32.0-36.0); Mean Corpuscular Hemoglobin 32.6 pg (27.0-33.0); Mean Corpuscular Volume 95.6 fl (81.2-95.1); Mean Platelet Volume 10.6 fl (7.4-10.4); Platelet Count 137 10x3/uL (150-450); RBC Distribution Width 12.6 % (11.5-14.5); Red Blood Cell (RBC) Count 3.62 10x6/uL (4.32-5.72); White Blood Cell (WBC) Count 5.2 10x3/uL (3.5-10.5)
[2021-05-26 12:31] LABS: Bilirubin Neg (Negative); Blood, Urine 10 (Negative); Clarity Clear (Clear); Glucose, Urine (Dipstick) Normal (Negative); Ketone, Urine Negative (Negative); Leukocyte Negative (Negative); Nitrite Negative (Negative); Protein, Urine (Dipstick) Negative (Neg-Trace); Specific Gravity, Urine 1.005 (1.002-1.036); Urobilinogen Normal mg/dL (Less than 2)
[2021-05-26 12:37] LABS: INR-International Normal Ratio 1.1; Prothrombin Time 11.6 sec (9.5-12.1)
[2021-05-26 12:44] LABS: Bacteria/HPF None Seen HPF (None Seen); RBC/HPF 0-3 HPF (0-3); Squamous Epithelial None Seen HPF (0-3); WBC/HPF None Seen HPF (0-3)
[2021-05-26 12:47] LABS: Anion Gap 11 mmol/L (10-20); BUN (Urea Nitrogen) 9 mg/dL (8.4-25.7); Calc. Creatinine Clearance 0 mL/min (70-130); Calcium 9.3 mg/dL (7.8-10.44); Carbon Dioxide 27 mmol/L (23-31); Chloride 100 mmol/L (98-107); Glucose 90 mg/dL (83-110); Potassium 4.6 mmol/L (3.5-5.1); Sodium 133 mmol/L (136-145)
[2021-05-27 00:28] LABS: SARS-CoV-2 PCR by NAA Not Detected (NotDetected)
[2021-05-27 14:36] VITALS: BMI 30.4
[2021-05-31] MEDS ORDERED: Tranexamic Acid 1,000 MG/10 ML VIAL ONE ×2 (08:07→12:06)
[2021-05-31] MEDS ORDERED: Sodium Chloride 0.9% 100 ML ONE (08:07)
[2021-05-31] MEDS ORDERED: Vancomycin 1.5 GRAM/300 ML BAG 1.5 GM in Premix Bag 1 BAG IVPB SCH ×2 (08:15→20:00)
[2021-05-31] MEDS ORDERED: Midazolam HCl 2 mg/2 ml Vial ONE (08:33)
[2021-05-31] MEDS ORDERED: Fentanyl 100 MCG/2 ML VIAL ONE ×3 (08:33→12:25)
[2021-05-31] MEDS ORDERED: ePHEDrine 50 MG/ML VIAL ONE (09:15)
[2021-05-31] MEDS ORDERED: Lidocaine 1% PF 5 ML VIAL ONE (09:15)
[2021-05-31] MEDS ORDERED: Bupivacaine HCl 0.5%/Epinephrine 1:200,000/PF 30 ml Vial ONE (09:15)
[2021-05-31] MEDS ORDERED: Dexamethasone 20 MG/5 ML VIAL ONE (09:15)
[2021-05-31] MEDS ORDERED: PROPOFOL 200 MG/20 ML VIAL ONE (09:15)
[2021-05-31] MEDS ORDERED: Ropivacaine 2% HCl/PF (20 MG/10 ML VIAL) ONE (09:15)
[2021-05-31] MEDS ORDERED: Ketorolac Tromethamine 30 MG/ML VIAL ONE ×2 (09:15→12:12)
[2021-05-31] MEDS ORDERED: Ondansetron PF 4 MG/2 ML Vial ONE ×2 (09:15→12:12)
[2021-05-31] MEDS ORDERED: Tranexamic Acid 1,000 MG in Sodium Chloride 0.9% 100 ML IVPB SCH (09:30)
[2021-05-31] MEDS ORDERED: Promethazine HCl 25 MG/ML VIAL IM PRN ×3 (09:31→11:32)
[2021-05-31] MEDS ORDERED: HYDROcodone/Acetaminophen 10/325 mg Tablet PO PRN ×3 (09:31→10:15)
[2021-05-31] MEDS ORDERED: Ondansetron PF 4 MG/2 ML Vial IVP PRN (09:31)
[2021-05-31] MEDS ORDERED: Zolpidem Tartrate 5 MG TAB PO PRN ×2 (09:31→10:15)
[2021-05-31] MEDS ORDERED: Fentanyl 100 MCG/2 ML VIAL SLOW IVP PRN (09:31)
[2021-05-31] MEDS ORDERED: diphenhydrAMINE 25 MG CAP PO PRN (09:31)
[2021-05-31] MEDS ORDERED: Bupivacaine PF 0.5% 30 ML VIAL ONE (09:44)
[2021-05-31] MEDS ORDERED: Fentanyl 100 MCG/2 ML VIAL IV PRN (10:08)
[2021-05-31] MEDS ORDERED: traMADol HCl 50 MG TAB PO PRN ×2 (10:15)
[2021-05-31] MEDS ORDERED: Ropivacaine HCl/PF 250 ML in Premix Bag 1 BAG NERVE BLCK SCH (10:15)
[2021-05-31] MEDS ORDERED: Promethazine HCl 25 MG/ML VIAL IVPB PRN (11:32)
[2021-05-31] MEDS ORDERED: HYDROmorphone 2 MG/ML VIAL SLOW IVP PRN (11:32)
[2021-05-31] MEDS ORDERED: PACU-Morphine 4MG/ML VIAL SLOW IVP PRN (11:32)
[2021-05-31] MEDS ORDERED: Ondansetron HCl/PF 4 MG/2 ML Vial IVP PRN (11:32)
[2021-05-31] MEDS ORDERED: PROPOFOL 20 ML ONE (12:12)
[2021-05-31] MEDS ORDERED: ePHEDrine Sulfate 50 MG/10 ML VIAL ONE (12:31)
[2021-05-31] MEDS: Ketorolac Tromethamine 30 MG/ML VIAL IVP SCH ×2 (13:45→21:14)
[2021-05-31] MEDS: Ondansetron PF 4 MG/2 ML Vial IVP PRN (13:45)
[2021-05-31] MEDS: Sodium Chloride 0.9% 1,000 ML IV SCH ×2 (14:37→19:37)
[2021-05-31] MEDS ORDERED: Amlodipine 5 MG TAB PO SCH (15:00)
[2021-05-31] MEDS ORDERED: Lisinopril 20 MG TAB PO SCH (15:00)
[2021-05-31] MEDS: Lisinopril 20 MG TAB PO SCH (15:12)
[2021-05-31] MEDS: CEFAZOLIN 2 GM in Premix Bag 1 BAG IVPB SCH (19:10)
[2021-05-31] MEDS: Ferrous Gluconate 324 MG TAB PO SCH (21:14)
[2021-05-31] MEDS: Aspirin 81 mg Enteric Coated Tablet PO SCH (21:14)
[2021-05-31] MEDS: Senokot S 8.6-50 MG TAB PO SCH (21:16)
[2021-06-01] MEDS: CEFAZOLIN 2 GM in Premix Bag 1 BAG IVPB SCH (01:20)
[2021-06-01] MEDS: Sodium Chloride 0.9% 1,000 ML IV SCH ×2 (05:18→19:44)
[2021-06-01] MEDS: Ketorolac Tromethamine 30 MG/ML VIAL IVP SCH ×3 (05:26→20:34)
[2021-06-01] MEDS: Levothyroxine Sodium 100 MCG TAB PO SCH (05:27)
[2021-06-01 05:48] LABS: Hemoglobin 11.9 g/dL (14.0-18.0); Mean Corpuscular HGB CONC 34.8 g/dL (32.0-36.0); Mean Corpuscular Hemoglobin 34.5 pg (27.0-31.0); Mean Corpuscular Volume 99.2 fL (78.0-98.0); Mean Platelet Volume 7.7 fL (7.4-10.4); Platelet Count 125 thou/uL (130-400); RBC Distribution Width 11.7 % (11.5-14.5); Red Blood Cell (RBC) Count 3.44 mill/uL (4.70-6.10); White Blood Cell (WBC) Count 9.5 thou/uL (4.8-10.8)
[2021-06-01] MEDS ORDERED: Non-Formulary Item 1 EACH (Oxybutynin Chloride [Ditropan Xl] 10 MG Tab.Er.24) PO SCH (09:00)
[2021-06-01] MEDS ORDERED: Non-Formulary Item 1 EACH (Omeprazole Magnesium [Prilosec Otc] 20 MG Tab) PO SCH (09:00)
[2021-06-01] MEDS ORDERED: LEVOTHYROXINE SODIUM 100 MCG PO SCH (09:00)
[2021-06-01] MEDS ORDERED: Non-Formulary Item 1 EACH (Potassium Gluconate [Potassium Gluconate] 99 MG Tablet) PO SCH (09:00)
[2021-06-01] MEDS ORDERED: Non-Formulary Item 1 EACH (Benazepril Hcl [Benazepril Hcl] 20 MG Tablet) PO SCH (09:00)
[2021-06-01] MEDS ORDERED: PROPRANOLOL HCL 120 MG PO SCH (09:00)
[2021-06-01] MEDS: Propranolol HCl LA 60 MG CAP PO SCH (10:17)
[2021-06-01] MEDS: Amlodipine 5 MG TAB PO SCH (10:18)
[2021-06-01] MEDS: Lisinopril 20 MG TAB PO SCH (10:19)
[2021-06-01] MEDS: Senokot S 8.6-50 MG TAB PO SCH ×2 (10:19→20:34)
[2021-06-01] MEDS: Aspirin 81 mg Enteric Coated Tablet PO SCH ×2 (10:19→20:34)
[2021-06-01] MEDS: Oxybutynin ER 5 MG TAB PO SCH (10:20)
[2021-06-01] MEDS: Potassium Chloride 10 MEQ TAB PO SCH (10:20)
[2021-06-01] MEDS: Ferrous Gluconate 324 MG TAB PO SCH ×2 (10:22→20:34)
[2021-06-01] MEDS: Multivitamin W/ Minerals 1 TAB PO SCH (10:27)
[2021-06-01] MEDS: HYDROcodone/Acetaminophen 10/325 mg Tablet PO PRN (13:58)
[2021-06-01] MEDS: Ondansetron PF 4 MG/2 ML Vial IVP PRN (13:59)
[2021-06-02] MEDS: Sodium Chloride 0.9% 1,000 ML IV SCH ×3 (00:01→20:45)
[2021-06-02] MEDS: HYDROcodone/Acetaminophen 10/325 mg Tablet PO PRN ×3 (00:20→13:14)
[2021-06-02] MEDS: Ketorolac Tromethamine 30 MG/ML VIAL IVP SCH ×2 (04:51→13:27)
[2021-06-02 06:06] LABS: Hemoglobin 9.7 g/dL (14.0-18.0); Mean Corpuscular HGB CONC 34.6 g/dL (32.0-36.0); Mean Corpuscular Hemoglobin 34.3 pg (27.0-31.0); Mean Platelet Volume 7.9 fL (7.4-10.4); Platelet Count 108 thou/uL (130-400); RBC Distribution Width 12.3 % (11.5-14.5); Red Blood Cell (RBC) Count 2.84 mill/uL (4.70-6.10); White Blood Cell (WBC) Count 6.9 thou/uL (4.8-10.8)
[2021-06-02] MEDS: Levothyroxine Sodium 100 MCG TAB PO SCH (06:42)
[2021-06-02] MEDS: Amlodipine 5 MG TAB PO SCH (09:18)
[2021-06-02] MEDS: Multivitamin W/ Minerals 1 TAB PO SCH (09:19)
[2021-06-02] MEDS: Ferrous Gluconate 324 MG TAB PO SCH ×2 (09:19→20:45)
[2021-06-02] MEDS: Oxybutynin ER 5 MG TAB PO SCH (09:19)
[2021-06-02] MEDS: Aspirin 81 mg Enteric Coated Tablet PO SCH ×2 (09:19→20:45)
[2021-06-02] MEDS: Senokot S 8.6-50 MG TAB PO SCH ×2 (09:19→20:45)
[2021-06-02] MEDS: Potassium Chloride 10 MEQ TAB PO SCH (09:20)
[2021-06-02] MEDS: Lisinopril 20 MG TAB PO SCH (09:21)
[2021-06-02] MEDS: Propranolol HCl LA 60 MG CAP PO SCH (14:30)
[2021-06-03] MEDS: HYDROcodone/Acetaminophen 10/325 mg Tablet PO PRN ×3 (02:38→16:21)
[2021-06-03] MEDS: Levothyroxine Sodium 100 MCG TAB PO SCH (06:35)
[2021-06-03 06:44] LABS: Hemoglobin 9.5 g/dL (14.0-18.0); Mean Corpuscular HGB CONC 34.5 g/dL (32.0-36.0); Mean Corpuscular Hemoglobin 34.3 pg (27.0-31.0); Mean Corpuscular Volume 99.4 fL (78.0-98.0); Mean Platelet Volume 8.3 fL (7.4-10.4); Platelet Count 123 thou/uL (130-400); RBC Distribution Width 11.7 % (11.5-14.5); Red Blood Cell (RBC) Count 2.77 mill/uL (4.70-6.10); White Blood Cell (WBC) Count 6.7 thou/uL (4.8-10.8)
[2021-06-03] MEDS: Propranolol HCl LA 60 MG CAP PO SCH (08:43)
[2021-06-03] MEDS: Aspirin 81 mg Enteric Coated Tablet PO SCH ×2 (08:43→21:21)
[2021-06-03] MEDS: Potassium Chloride 10 MEQ TAB PO SCH (08:43)
[2021-06-03] MEDS: Ferrous Gluconate 324 MG TAB PO SCH ×2 (08:44→21:21)
[2021-06-03] MEDS: Amlodipine 5 MG TAB PO SCH (08:44)
[2021-06-03] MEDS: Multivitamin W/ Minerals 1 TAB PO SCH (08:44)
[2021-06-03] MEDS: Lisinopril 20 MG TAB PO SCH (08:44)
[2021-06-03] MEDS: Oxybutynin ER 5 MG TAB PO SCH (08:45)
[2021-06-03] MEDS: Senokot S 8.6-50 MG TAB PO SCH ×2 (08:46→21:21)
[2021-06-03] MEDS: Sodium Chloride 0.9% 1,000 ML IV SCH ×2 (10:50→15:24)
[2021-06-03] MEDS ORDERED: Ropivacaine HCl/PF 250 ML in Premix Bag 1 BAG NERVE BLCK SCH (15:15)
[2021-06-04] MEDS: Sodium Chloride 0.9% 1,000 ML IV SCH ×2 (05:36→14:12)
[2021-06-04] MEDS: Levothyroxine Sodium 100 MCG TAB PO SCH (06:17)
[2021-06-04 06:47] LABS: Mean Corpuscular HGB CONC 34.3 g/dL (32.0-36.0); Mean Corpuscular Hemoglobin 33.9 pg (27.0-31.0); Mean Corpuscular Volume 98.7 fL (78.0-98.0); Mean Platelet Volume 8.5 fL (7.4-10.4); Platelet Count 153 thou/uL (130-400); RBC Distribution Width 11.7 % (11.5-14.5); Red Blood Cell (RBC) Count 2.94 mill/uL (4.70-6.10); White Blood Cell (WBC) Count 6.9 thou/uL (4.8-10.8)
[2021-06-04 08:17] VITALS: TEMP 98.1
[2021-06-04] MEDS: Propranolol HCl LA 60 MG CAP PO SCH (10:09)
[2021-06-04] MEDS: Aspirin 81 mg Enteric Coated Tablet PO SCH (10:09)
[2021-06-04] MEDS: Multivitamin W/ Minerals 1 TAB PO SCH (10:10)
[2021-06-04] MEDS: Lisinopril 20 MG TAB PO SCH (10:10)
[2021-06-04] MEDS: Oxybutynin ER 5 MG TAB PO SCH (10:10)
[2021-06-04] MEDS: Ferrous Gluconate 324 MG TAB PO SCH (10:11)
[2021-06-04] MEDS: Potassium Chloride 10 MEQ TAB PO SCH (10:11)
[2021-06-04] MEDS: Amlodipine 5 MG TAB PO SCH (10:11)
[2021-06-04] MEDS: Acetaminophen 325 MG TAB PO PRN ×2 (10:32→14:16)
[2021-06-04] MEDS ORDERED: Ibuprofen 600 MG TAB PO PRN (10:33)
[2021-06-04] MEDS: Senokot S 8.6-50 MG TAB PO SCH (14:19)
[2021-06-04] MEDS: HYDROcodone/Acetaminophen 10/325 mg Tablet PO PRN (15:16)
[2021-06-04 17:56] VITALS: BP 131/76
== END 2021-06-04 17:30 | disposition home or self-care (01) | DRG 470 ==
LOC: SDC 07:06 → SURG B 09:31
PROVIDERS: ADMIT Orthopaedic Surgery; ATTEND Orthopaedic Surgery
PROC: 0SRC0J9 Replacement of Right Knee Joint with Synthetic Substitute, Cemented, Open Approach (ICD-10-PCS; principal; 2021-05-31)
PROC: 0QSG04Z Reposition Right Tibia with Internal Fixation Device, Open Approach (ICD-10-PCS; 2021-05-31)
DX: M17.11 Unilateral primary osteoarthritis, right knee (principal); M96.671 Fracture of tibia or fibula following insertion of orthopedic implant, joint prosthesis, or bone plate, right leg; Z20.822 Contact with and (suspected) exposure to COVID-19; Y83.8 Other surgical procedures as the cause of abnormal reaction of the patient, or of later complication, without mention of misadventure at the time of the procedure; I10 Essential (primary) hypertension; G62.9 Polyneuropathy, unspecified; J30.2 Other seasonal allergic rhinitis; E03.9 Hypothyroidism, unspecified; Z87.891 Personal history of nicotine dependence; Z79.899 Other long term (current) drug therapy; Y92.234 Operating room of hospital as the place of occurrence of the external cause
CPT/HCPCS: 36415; 76000; 80048; 81001; 85025; 85027; 85610; 86850; 86900; 86901; 87081; C1713; C1776; J0690; J1100; J1885; J2250; J2405; J2704; J2795; J3010; J3370; J3490; J7050; S0020; U0003; U0005

== ENCOUNTER 2023-01-09 16:29 | Outpatient (CLI) | payer MEDICARE, OTHER | END 2023-01-09 16:30 | disposition home or self-care (01) | LOC: SCSRAD 16:29 | PROVIDERS: ATTEND Family Medicine Sports Medicine | DX: M25.512 Pain in left shoulder (principal) ==

== ENCOUNTER 2023-06-09 10:22 | Outpatient (CLI) | payer MEDICARE, OTHER | END 2023-06-09 10:23 | disposition home or self-care (01) | LOC: SCSMRI 10:22 | PROVIDERS: ATTEND Radiology Radiation Oncology | DX: C79.51 Secondary malignant neoplasm of bone (principal); C22.8 Malignant neoplasm of liver, primary, unspecified as to type; R20.0 Anesthesia of skin | CPT/HCPCS: 70553 ==